=== PATIENT | female | born 1955 | race Caucasian/White ===

== ENCOUNTER → 2019-06-10 | Day surgery (SDC) | payer MEDICAID ==
[~2019-06-10] VITALS: Ht 152.4 cm; Wt 78.9 kg
[~2019-06-10] MED LIST: ASPI-1393 PO; BALANCED SALT IRRIG SOLN COMB1 500ML OP NR; BALANCED SALT IRRIG SOLN COMB1 500ML OP ONE; CIPROFLOXACIN 0.3% OPHTH SOLN 2.5ML ONE; CYCLOPENTOLATE HCL 1% OPHTH DROPS 2ML LEFTEYE ONE; FENTANYL CITRATE/PF 50MCG/ML 2ML VIAL IV PRN; FENTANYL CITRATE/PF 50MCG/ML 2ML VIAL ONE; GLIP5TAB12 PO; HYALURONATE SODIUM 14 MG/ML 0.85ML SYRINGE IO ONE; LIDOCAINE HCL/PF 2% 20 MG/ML 10ML VIAL ONE; METF-414 PO; MIDAZOLAM HCL 2 MG/2 ML VIAL ONE; NEO/POLYMYX B SULF/DEXAMETH OPHTH OINT 3.5GM ONE; ONDANSETRON HCL 4MG/2ML INJ IV PRN; PHENYLEPHRINE HCL 10% OPHTH DROPS 5ML LEFTEYE ONE; PREDNISOLONE ACETATE 1% OPHTH DROPS 1ML ONE; RANI150T7 PO; TETRACAINE 0.5% OPHTH DROPS 4ML ONE; TROPICAMIDE 1% OPHTH DROPS 15ML LEFTEYE ONE
[2019-06-10 09:59] LABS: BASOPHILS % 0.4 % (0.0-2.0); EOSINOPHILS % 1.4 % (0.0-5.0); HEMOGLOBIN. 12.3 g/dL (12.0-16.0); LYMPHOCYTES % 43.9 % (20.0-50.0); MEAN CORPUSCULAR HEMOGLOBIN 31.3 pg (28.0-32.0); MEAN CORPUSCULAR VOLUME 91.5 fL (81.0-99.0); MEAN PLATELET VOLUME 8.8 fl (7.4-10.4); MONOCYTES % 9.9 % (2.0-8.0); NEUTROPHILS % 44.4 % (40.0-76.0); PLATELET 162 x1000/uL (130-400); RED BLOOD CELL COUNT 3.94 mill/uL (4.2-5.4); RED CELL DISTRIBUTION WIDTH 13.2 % (11.6-14.6)
[2019-06-10 10:01] LABS: CHLORIDE 108 mEq/L (98-107)
[2019-06-10 10:04] LABS: PARTIAL THROMBOPLASTIN TIME 26.9 sec (23.4-31.0); PROTHROMBIN TIME 10.6 sec (9.6-11.0)
== END | disposition home or self-care (01) ==
LOC: OR 08:18
PROVIDERS: ATTEND Ophthalmology
DX: E11.36 Type 2 diabetes mellitus with diabetic cataract (principal); H25.012 Cortical age-related cataract, left eye; K21.9 Gastro-esophageal reflux disease without esophagitis; K29.70 Gastritis, unspecified, without bleeding; D64.9 Anemia, unspecified; J18.9 Pneumonia, unspecified organism; Z98.890 Other specified postprocedural states; Z79.84 Long term (current) use of oral hypoglycemic drugs; Z79.899 Other long term (current) drug therapy; Z79.82 Long term (current) use of aspirin; Z91.041 Radiographic dye allergy status; Z91.013 Allergy to seafood
CPT/HCPCS: 36415; 66984; 80048; 82962; 85025; 85610; 85730; J2250; J3010; J3490; J7040; V2632